=== PATIENT | female | born 1980 | race Hispanic/Latino ===

== ENCOUNTER 2017-02-23 18:29 | Emergency (ER) | payer OTHER ==
[~2017-02-23] VITALS: Ht 144.8 cm; Wt 67.7 kg
[~2017-02-23 18:29] MED LIST: Docusate Sodium PO; FERR-83 PO; Ibuprofen PO; Oxycodone/Acetaminophen PO
[2017-02-23 18:37] VITALS: BP 177/119; PULSE 93; RESP 16; O2SAT 100
[2017-02-23] MEDS ORDERED: CITA10TA9 PO (18:41)
[2017-02-23] MEDS ORDERED: HYDR25TA4 PO (18:41)
--- NOTE | 2017-02-23 19:04 | ED.REPORT ---
HPI-Back Pain Under 40 Date of Service Feb 23, 2017 ED Provider: Eduardo Loera History of Present Illness: 36yo female with several days of L lateral lumbar pain, markedly worsened today while trying to pull on pants. No known previous injury, not prone to back pain. LMP 1 weeks ago, no bowel/bladder dysfunction. Pain is sharp, non-radiating. No meds or chronic medical problems. Nursing Notes Stated Complaint: LOWER LEFT BACK PAIN, DIFFICULTY MOVING AROUND Chief Complaint: Back Pain or Injury Nursing Notes Reviewed: Yes Allergies: Coded Allergies: No Known Allergies (Unverified , 02/23/17) Scheduled Cephalexin (Cephalexin) 500 Mg Capsule 500 MG PO QID Citalopram (Citalopram) 10 Mg Tablet 10 MG PO DAILY Hydrochlorothiazide (Hydrochlorothiazide) 25 Mg Tablet 12.5 MG PO DAILY Scheduled PRN Cyclobenzaprine (Cyclobenzaprine) 10 Mg Tablet 10 MG PO BID PRN PRN Spasm Hydrocodone-Acetaminophen 5-325 mg (Hydrocodone-Acetaminophen 5-325 mg) 1 Each Tablet 1 TABLET PO QID PRN PRN For Pain General Time Seen by MD: 18:58 Chief Complaint Lumbar pain Hx Obtained From: Patient Arrived By: Walk-in Sudden in Onset?: Yes Onset Occurred: 5 days ago Symptom Duration: Since onset Location: : Flank left Quality: Painful, Sharp Radiation: : Does not radiate Severity: Current: Severe Severity: Maximum: Severe Associated with: Denies: Fever, Frequency, Hematuria, Inability to walk, Incontinence bladder, Incontinence bowel, Nausea, Vomiting, Weakness left lower ext Pertinent Negative: Pt denies other symptoms Recent Healthcare: No recent doctor visit Similar Sx Previous: No Risk Factors TAD Risk Stratification Risk factors reviewed Epidural Hematoma Risk Stratif No risk factors Epidural Abscess Risk Stratifi No risk factors Past Medical History Past Surgical History x 2 Ovarian cysts Smoking History Never Smoker Social History Alcohol Use: Denies alcohol use Drug Use: Denies drug use Ambulatory Status Independent Review of Systems Constitutional: Denies: Chills, Fever Cardiovascular: Denies: Chest pain GI: Denies: Abdominal pain Female: Denies: Dysuria, Incontinence, Pelvic pain, , Vaginal bleeding - abnl, Vaginal discharge Musculoskeletal: Reports: Back pain Neurologic: Denies: Bladder dysfunction, Bowel dysfunction, Focal weakness Physical Exam Physical Exam Notes: BP elevation noted, much improved after pain control. Initial Vital Signs Vital Signs (First) Date Time Temp Pulse Resp B/P Pulse Ox O2 Delivery O2 Flow Rate FiO2 02/23/17 18:37 36.6 93 16 177/119 100 Room Air Initial VS: Reviewed General/Constitutional: Alert, Not toxic appearing Distress / Hydration: Positive: Distress moderate Prefers to stand due to low back pain Back: No midline vertebral tend Flank / Spine / Paraspinal: Positive: Flank tender L, Lumbar paraspinal tend... (Mid) Straight Leg Raise: Positive: Strt leg raise + L 20 deg Neurologic: Oriented X3, Speech NL, No motor deficits, No sensory deficits, CN II - XII intact, Reflexes equal bilat Sensory Deficit: Negative: Saddle anesthesia Gait Abnormality: Positive: Antalgic gait Interpretation & Diagnostics Interpretation & Diagnostics: Bedside negative. + UTI by UA, cx. pending Lab Results Interpretation Test 02/23/17 19:36 Urine Color Yellow (YELLOW) Urine Appearance Hazy (CLEAR,HAZY) Urine pH 6.0 (5.0-8.0) Urine Specific [place] 1.020 (1.003-1.035) Urine Protein Negativemg/dL (NEG,TRACE) Urine Glucose (UA) Negativemg/dL (NEGATIVE) Urine Ketones Negativemg/dL (NEGATIVE) Urine Occult Blood Large (NEGATIVE) Urine Nitrite Positive (NEGATIVE) Urine Bilirubin Negative (NEGATIVE) Urine Urobilinogen Normalmg/dL (NORMAL) Urine Leukocyte Esterase Negative (NEGATIVE) Urine RBC 3-10/hpf (0-2) Urine WBC 0-5/hpf (0-5) Urine Epithelial Cells Few/hpf (NONE-MOD) Urine Crystals None seen (NONE SEEN) Urine Bacteria Moderate/hpf (NONE-FEW) Urine Hyaline Casts None/lpf (NONE) Urine Granular Casts None seen (NONE SEEN) Urine Waxy Casts None seen (NONE SEEN) Urine Red Blood Cell Casts None seen (NONE SEEN) Urine White Blood Cell Casts None seen (NONE SEEN) Urine Mucus Present (None Seen) Urine Trichomonas None seen (NONE SEEN) Urine Yeast None (NONE SEEN) Urinalysis Comment None Urine Culture Reflexed Indicated Re-Eval/Medical Decision Med Decision/Clinical Course Pt. has a UTI and an acute lumbar strain. Pain is very lateral, no concern for cord impingement at present. She should do well with UTI treastment and low back pain control. Pain decreased after ED meds administered. Encouraged recheck with PCP later this week. S/s for which to return to ED discussed. Pt. acknowkedged understanding of treatment plan. Counseled Regarding: Diagnosis, Lab results, Need for follow-up, When/why to return to ED Discharge & Departure Shift Change Sign-Out Response to Therapy: Improved Impression: Primary Impression: Lumbosacral strain Encounter type: initial encounter Qualified Code: S39.012A - Strain of muscle, fascia and tendon of lower back, initial encounter Additional Impression: UTI (urinary tract infection) Urinary tract infection type: site unspecified Hematuria presence: without hematuria Qualified Code: N39.0 - Urinary tract infection, site not specified Disposition: Home Patient Instructions: Acute Low Back Pain (ED), Urinary Tract Infection in Women (ED) Additional Instructions: Rest, local heat to low back, push fluids. Take meds as prescribed. See your PCP later this week for recheck. Return to ER if anything worsens. Referrals: Adenike Alvarado (PCP) 2-3 days recheck EDSupervising Provider for APC: Luis Gomez DO copies to: Adenike Alvarado Christopher R PAC Feb 23, 2017 19:04
[2017-02-23] MEDS ORDERED: HYDROcodone-APAP 5-325 mg Tablet PO ONE (19:05)
[2017-02-23 19:35] VITALS: BP 141/101
[2017-02-23 19:50] LABS: COLOR,URINE YELLOW (YELLOW)
[2017-02-23 19:51] LABS: APPEARANCE,URINE HAZY (CLEAR,HAZY); OCCULT BLOOD,URINE LARGE (NEGATIVE); UROBILINOGEN,URINE NORMAL (NORMAL)
[2017-02-23] MEDS ORDERED: CEPH500C PO (20:18)
[2017-02-23] MEDS ORDERED: HYDR-4003 PO (20:18)
[2017-02-23] MEDS ORDERED: CYCL10TA9 PO (20:18)
[2017-02-23 20:25] VITALS: BP 138/97; PULSE 65; RESP 12; O2SAT 98
== END 2017-02-23 20:26 | disposition home or self-care (01) ==
LOC: SED 18:29
DX: S39.012A Strain of muscle, fascia and tendon of lower back, initial encounter (principal); X58.XXXA Exposure to other specified factors, initial encounter; Y92.9 Unspecified place or not applicable; Y93.9 Activity, unspecified; Y99.9 Unspecified external cause status; N39.0 Urinary tract infection, site not specified; B96.20 Unspecified Escherichia coli [E. coli] as the cause of diseases classified elsewhere

== ENCOUNTER 2017-02-24 08:19 | Emergency (ER) | payer OTHER ==
[~2017-02-24] VITALS: Ht 144.8 cm; Wt 67.7 kg
[~2017-02-24 08:19] MED LIST changes: +CEPH500C PO; +CITA10TA9 PO; +CYCL10TA9 PO; +HYDR-4003 PO; +HYDR25TA4 PO
[2017-02-24 08:21] VITALS: BP 158/99; PULSE 97; RESP 15; O2SAT 100
--- NOTE | 2017-02-24 08:34 | ED.REPORT ---
HPI-General Illness Date of Service Feb 24, 2017 ED Provider: Sade Day Patient is a 36 year old female who presents to the ED complaining of L sided low back pain onset 5 days ago. She was seen in the department last night and dx with UTI and low back strain. Her pain is worse this morning so prompting her to return to the department. She describes her pain as an ache accompanied by sharp pain when moving without radiation. Associated symptoms include itching and she is concerned she is reacting to a medication. She was started on antibiotics, Vicodin, and muscle relaxers last night. She denies nausea, vomiting, diarrhea, dysuria, vaginal discharge, numbness, weakness, cough, or any other symptoms. She takes citalopram and hctz daily. She has not been taking ibuprofen. Nursing Notes Stated Complaint: L LOWER BACK PAIN Chief Complaint: General Complaint Nursing Notes Reviewed: Yes Allergies: Coded Allergies: hydrocodone (Verified Adverse Reaction, Mild, ITCH, 02/24/17) Scheduled Cephalexin (Cephalexin) 500 Mg Capsule 500 MG PO QID Citalopram (Citalopram) 10 Mg Tablet 10 MG PO DAILY Hydrochlorothiazide (Hydrochlorothiazide) 25 Mg Tablet 12.5 MG PO DAILY Scheduled PRN Cyclobenzaprine (Cyclobenzaprine) 10 Mg Tablet 10 MG PO BID PRN PRN Spasm Hydrocodone-Acetaminophen 5-325 mg (Hydrocodone-Acetaminophen 5-325 mg) 1 Each Tablet 1 TABLET PO QID PRN PRN For Pain General Time Seen by MD: 08:33 Chief Complaint Back pain Hx Obtained From: Patient Arrived By: Walk-in Recent Healthcare: Recent doctor visit, Recent testing, Previous diagnosis Past Medical History Past Medical History Reports: Depression Past Surgical History x 2 Ovarian cysts Smoking History Never Smoker Social History Alcohol Use: Denies alcohol use Drug Use: Denies drug use Ambulatory Status Independent Review of Systems Full Review of Systems Respiratory: Denies: Non-productive cough GI: Denies: Diarrhea, Nausea, Vomiting Female: Denies: Dysuria, Vaginal discharge Musculoskeletal: Reports: Back pain Skin: Reports Itching Neurologic: Denies: Numbness, Weakness Complete sys rev & neg: except as marked. Physical Exam Vital Signs Vital Signs Date Time Temp Pulse Resp B/P Pulse Ox O2 Delivery O2 Flow Rate FiO2 02/24/17 08:21 36.8 97 15 158/99 100 Room Air Initial VS: Reviewed, Vital signs abnormal Skin: Warm, Dry Psychiatric: Mood/affect normal, Behavior normal, Normal thought content General/Constitutional: Awake, Alert, Well developed Head / Eyes: Atraumatic, Normocephalic Neck: Full range of motion Respiratory / Chest: Breath sounds NL, Breath sounds = bilat, No respiratory distress Cardiovascular: Peripheral circulation NL, Pulses = bilaterally Back: No CVA tenderness L gabbi-spinal tenderness. palpation reproduces symptoms. Neurologic: Oriented X3, Speech NL Procedures 0854 Trigger point injection administered. Informed consent provided. Area most tender to the L of Gabbi-lumbar spine was injected. Skin was cleaned with ChloraPrep. Injection was 50/50 Lidocaine and Normal saline. Patient tolerated procedure well and condition is improved. Re-Eval/Medical Decision Med Decision/Clinical Course The patient presents with increased back pain, she said she was told she had a kidney infection. Looking at the record does document that she has a urinary tract infection and back strain. Her exam is more consistent with musculoskeletal pain, it is reproducible and her pain radiates to her left hip and gluteal area. She is neurologically intact, there is no sign or concern for epidural abscess or cauda equina syndrome. I discussed with the patient I do not think this is related to her kidney. She was given a trigger point injection with minimal improvement and then she was given Toradol and Dilaudid after which point she stormed out of the emergency department saying she was not being listened to. I went to the waiting room and discuss options with her explaining was willing to do more testing, earlier we had a conversation and she seemed comfortable with her treatment while she was in the department. The patient refused to come back in and said she was going to go to [place]. As far as her pain being pyelonephritis patient did not have any CVA tenderness and she is afebrile. Another consideration would be renal colic have the patient does not have any radiation of her pain anteriorly and she is hoping still versus riving in pain. The patient was noted to be hypertensive which is likely related to pain. Time of Eval: 09:22 Patient Status: Mild relief Re-Evaluation/Progress Note: Rechecked patient. She has minimal improvement from the injection. Will order meds. Patient understands and agrees with plan. All questions addressed at this time. Time of Eval: 09:48 Patient Status: Condition improved Re-Evaluation/Progress Note: Per nurses, pt tried to leave after narcotic shot. Pt was offered more tests and refused. Counseled Regarding: Diagnosis Discharge & Departure Primary Impression: Back pain Back pain location: low back pain Chronicity: acute Back pain laterality: unspecified Sciatica presence: unspecified whether sciatica present Qualified Code: M54.5 - Low back pain Disposition: AGAINST MEDICAL ADVICE Discharge Condition All VS Reviewed: Yes Condition: Stable Referrals: Adenike Alvarado (PCP) Scribe Attestation Portions of this note were transcribed by Yuliya Romero. I, Dr. Day personally performed the history, physical exam and medical decision-making; I reviewed and confirmed the accuracy of the information in the transcribed note. Signed by: Yuliya Romero 02/22/17, 0950 copies to: Adenike Alvarado Jena M MD Feb 24, 2017 08:33 YULIYA ROMERO Feb 24, 2017 08:42
[2017-02-24] MEDS ORDERED: HYDROmorphone 0.5 mg/0.5 mL iSecure Syringe IM ONE (09:25)
== END 2017-02-24 10:13 | disposition left against medical advice (07) ==
LOC: SED 08:19
DX: M54.5 Low back pain (principal); L29.9 Pruritus, unspecified; F32.9 Major depressive disorder, single episode, unspecified; Z87.440 Personal history of urinary (tract) infections; Z88.5 Allergy status to narcotic agent
CPT/HCPCS: 20552; 96372; 99284; J1170; J1885